=== PATIENT | male | born 1985 ===

== ENCOUNTER 2017-09-03 02:01 | Inpatient (IN) | payer MEDICAID, OTHER ==
--- NOTE | 2017-09-03 02:06 | C.PDOC ---
History Of Present Illness 32 year old male presents to the ED complaining of mid-epigastric pain onset today. Patient reports pain as a sharp, stabbing pain rating it a 6/10. Patient has a history of pancreatitis. Patient states he has not consumed alcohol for the past two years; denies any other physical complaints at this time. Time Seen by Provider: 09/03/17 02:06 History Per: Patient History/Exam Limitations: no limitations Onset/Duration Of Symptoms: Hrs Current Symptoms Are (Timing): Still Present Context: Other Severity: Severe Pain Scale Rating Of: 8 Location Of Pain/Discomfort: Epigastric (mid-epigastric pain ) Quality Of Discomfort: Sharp, Stabbing Associated Symptoms: Nausea. denies: Fever, Chills Exacerbating Factors: None Alleviating Factors: None Last Bowel Movement: Yesterday Recent travel outside of the [place]: No Additional History Per: Family Past Medical History Reviewed: Historical Data, Nursing Documentation, Vital Signs Vital Signs: Last Vital Signs Temp 97.8 F 09/03/17 02:11 Pulse 95 H 09/03/17 02:11 Resp 18 09/03/17 02:11 BP 148/77 09/03/17 02:11 Pulse Ox 100 09/03/17 02:11 Surgical History: No Surg Hx Family History: States: Unknown Family Hx Review Of Systems Constitutional: Negative for: Fever, Chills Eyes: Negative for: Vision Change Cardiovascular: Negative for: Chest Pain Respiratory: Negative for: Cough, Shortness of Breath Gastrointestinal: Positive for: Abdominal Pain (mid-epigastric pain ). Negative for: Nausea, Vomiting, Diarrhea Genitourinary: Negative for: Dysuria Musculoskeletal: Negative for: Back Pain Skin: Negative for: Rash Neurological: Negative for: Weakness Psych: Negative for: Anxiety Physical Exam - Physical Exam Appears: Non-toxic, In Acute Distress Skin: Warm, Dry Head: Normacephalic Eye(s): bilateral: Normal Inspection Oral Mucosa: Moist Neck: Supple Chest: Symmetrical Cardiovascular: Rhythm Regular Respiratory: No Rales, No Rhonchi, No Wheezing Gastrointestinal/Abdominal: Soft, Tenderness (mid-epigastric tenderness), No Distention, No Guarding, No Rebound Back: Normal Inspection Extremity: Normal ROM Extremity: Bilateral: Atraumatic Pulses: Left Dorsalis Pedis: Normal, Right Dorsalis Pedis: Normal Neurological/Psych: Oriented x3 Gait: Steady ED Course And Treatment - Laboratory Results Result Diagrams: 09/03/17 02:30 09/03/17 02:30 Progress Note: Time: 0210. Plan: --CMP. --Lipase. --CBC with differentials. --PTT. --Prothrombin Time. --Pepcid 20 mg IVP. --Sodium Chloride IV 1000 mls/hr. --Toradol 30 mg IVP. --Zofran 4 mg IVP. --Urinalysis Disposition Discussed With Dr.: Braden Mcghee Comment: accepted the pt on his service and took over the care at 5:58AM Doctor Will See Patient In The: ED Counseled Patient/Family Regarding: Studies Performed, Diagnosis - Disposition Disposition: HOSPITALIZED Disposition Time: 02:06 Condition: FAIR - POA Present On Arrival: None - Clinical Impression Clinical Impression: Abdominal pain, Acute pancreatitis - Scribe Statement Scribe Attestation: Documented by Kishor Rios, acting as a scribe for Dr. Amira Hanna. Provider Scribe Attestation: All medical record entries made by the Scribe were at my direction and personally dictated by me. I have reviewed the chart and agree that the record accurately reflects my personal performance of the history, physical exam, medical decision making, and the department course for this patient. I have also personally directed, reviewed, and agree with the discharge instructions and disposition. Decision To Admit - Pt Status Changed To: Hospital Disposition Of: Inpatient - Admit Certification Admit to Inpatient:: After my assessment, the patient will require hospitalization for at least two midnights. This is because of the severity of symptoms shown, intensity of services needed, and/or the medical risk in this patient being treated as an outpatient. - InPatient: Physician Admission Certification:: After my assessment, the patient will require hospitalization for at least two midnights. This is because of the severity of symptoms shown, intensity of services needed, and/or the medical risk in this patient being treated as an outpatient. - . Bed Request Type: Regular Admitting Physician: Braden Mcghee Patient Diagnosis: Abdominal pain, Acute pancreatitis
[2017-09-03 02:10] VITALS: BMI 22.4
[2017-09-03] MEDS ORDERED: Sodium Chloride 0.9% 1,000 ML IV ONE ×2 (02:10→04:32)
[2017-09-03 02:56] LABS: ALB/GLOB RATIO 1.4 (1.0-2.1); ALBUMIN 4.7 g/dL (3.5-5.0); ALT/SGPT 66 U/L (21-72); AST/SGOT 31 U/L (17-59); BLOOD UREA NITROGEN 8 mg/dL (9-20); CALCIUM 8.8 mg/dl (8.6-10.4); GFR AFRICAN-AMERICAN > 60; GFR NON-AFRICAN AMERICAN > 60
[2017-09-03 03:06] LABS: BASO % 0.3 % (0.0-2.0); EOS # 0.2 K/uL (0.0-0.7); EOS % 1.9 % (0.0-4.0); HEMOGLOBIN 15.8 g/dL (12.0-18.0); LYMPH % 25.6 % (20.0-40.0); MEAN CELL VOLUME 83.8 fL (80.0-94.0); MEAN CORPUSCULAR HEMOGLOBIN 28.4 pg (27.0-31.0); MEAN PLATELET VOLUME 8.1 fL (7.2-11.7); MONO # 0.6 K/uL (0.0-0.8); NEUT # 7.8 K/uL (1.8-7.0); NEUT % 67.2 % (50.0-75.0); RBC 5.54 Mil/uL (4.40-5.90); RED CELL DISTRIBUTION WIDTH 14.8 % (11.5-14.5); WHITE BLOOD COUNT 11.6 K/uL (4.8-10.8)
[2017-09-03 03:19] LABS: PROTHROMBIN TIME 11.1 SECONDS (9.7-12.2)
[2017-09-03 04:28] LABS: LIPASE 57174 U/L (23-300)
[2017-09-03 04:28] LABS: URINE BILIRUBIN NEGATIVE (NEGATIVE); URINE BLOOD NEGATIVE (NEGATIVE); URINE CLARITY Clear (Clear); URINE COLOR Colorless (YELLOW); URINE GLUCOSE (UA) NORMAL (Normal); URINE LEUKOCYTE ESTERASE NEG Leu/uL (Negative); URINE PROTEIN NEGATIVE (NEGATIVE); URINE UROBILINOGEN NORMAL mg/dL (0.2-1.0)
[2017-09-03] MEDS ORDERED: Iohexol 350mg/ml 100 ML ONE (05:07)
--- NOTE | 2017-09-03 06:32 | CT ---
EXAM: CT Abdomen and Pelvis With Intravenous Contrast CLINICAL HISTORY: 32 years old, male; Pain; Abdominal pain and other: Lipase 96710; Prior surgery; Surgery type: Appendectomy; Additional info: Abd pain , lipase 62022 TECHNIQUE: Axial computed tomography images of the abdomen and pelvis with intravenous contrast. All CT scans at this facility use one or more dose reduction techniques, viz.: automated exposure control; ma/kV adjustment per patient size (including targeted exams where dose is matched to indication; i.e. head); or iterative reconstruction technique. 679 images are submitted. Axial images are submitted in lung and soft tissue windows. Coronal and sagittal reformatted images were created and reviewed. CONTRAST: 100 mL of [id number] administered intravenously. COMPARISON: No relevant prior studies available. FINDINGS: Lung bases: Bibasilar lingular trace patchy nonspecific infiltrates are present, consistent with atelectasis or pneumonia. ABDOMEN: Liver: Fatty liver. Gallbladder and bile ducts: Nonspecific gallbladder distention with mild prominence of gallbladder wall. Pancreas: Peripancreatic inflammatory change and fluid representing acute pancreatitis. No ductal dilation. Spleen: Unremarkable. No splenomegaly. Adrenals: There is fluid in the left supraadrenal space and bilateral anterior pararenal space Kidneys and ureters: Mild distention of bilateral extrarenal pelvis left more than right No hydronephrosis. Stomach and bowel: Nonspecific gastric thickening likely due to under distention. Correlation with clinical data is recommended if gastritis is suspected. Large amount of stool in the colon. Correlation with patient's clinical history of constipation is recommended. Diverticulosis.There are nonspecific fluid filled small bowel loops. These findings can represent ileus versus enteritis versus slow transit versus peristalsis. Appendix: Appendectomy. PELVIS: Bladder: Bladder distention. Correlation with patient's voiding status is recommended. Reproductive: Unremarkable. ABDOMEN and PELVIS: Intraperitoneal space: Small amount of free pelvic fluid. No free air. No significant fluid collection. Bones/joints: No acute fracture. No dislocation. Soft tissues: There is a fat-containing umbilical hernia. Vasculature: Unremarkable. No abdominal aortic aneurysm. Lymph nodes: Multiple subcentimeter mesenteric and ileocolic lymph nodes. Findings are nonspecific but may represent mesenteric adenitis. IMPRESSION: 1. Peripancreatic inflammatory change and fluid representing acute pancreatitis.
[2017-09-03 06:57] VITALS: RESP 20
[2017-09-03] MEDS ORDERED: Morphine 4 MG/ML VIAL ONE (09:25)
--- NOTE | 2017-09-03 09:40 | CP.PCM.HP ---
History of Present Illness - History of Present Illness History of Present Illness: CC: Left sided abdominal pain HPI: Patient is a 32 year old male with past medical history of acute pancreatitis (2016), who presents with left-sided abdominal pain that started at 1:30am with associated symptom of one time episode of vomiting. Patient reports this has a heavy pain that is localized to the left side of his abdomen without any radiation. Patient denies any episode of fever, chills, chest pain, SOB, palpitations, hematochezia, hematuria, dysuria. Patient denies any acute alcohol binging. PMHx: Acute pancreatitis (2016) PSHx: Appendectomy (2007) FHx: Father(56, multiple episodes of acute pancreatitis and DM) and Mother (51, healthy) Medications: Denies Allergies: NKDA Social Hx: Visiting his from [place]. Denies Hx of tobacco and illicit drug use. Social ETOH use, but has not had ETOH in 2 years after his first acute pancreatitis episode Advance directive: None. Patient reports that his , Jeanette is to make medical decision on his behalf. [phone] Present on Admission - Present on Admission Any Indicators Present on Admission: No Review of Systems - Constitutional Constitutional: absent: Chills, Fever, Headache, Weakness - EENT Eyes: absent: Blurred Vision, Change in Vision Ears: absent: Dizziness - Cardiovascular Cardiovascular: absent: Chest Pain, Chest Pain at Rest, Diaphoresis, Dyspnea, Lightheadedness, Radiating Pain - Respiratory Respiratory: absent: Cough, Dyspnea, Hemoptysis, Dyspnea on Exertion, Wheezing - Gastrointestinal Gastrointestinal: Abdominal Pain, Nausea, Vomiting. absent: Belching, Bloating , Cramping, Diarrhea, Hematochezia - Genitourinary Genitourinary: absent: Dysuria, Hematuria - Musculoskeletal Musculoskeletal: absent: Arthralgias, Back Pain - Integumentary Integumentary: absent: Unusual Bruising - Neurological Neurological: absent: Dizziness, Numbness, Focal Weakness, Syncope - Endocrine Endocrine: absent: Fatigue, Palpitations - Hematologic/Lymphatic Hematologic: absent: Easy Bleeding, Easy Bruising Past Patient History - Past Social History Smoking Status: Never Smoked - GASTROINTESTINAL Hx Pancreatitis: Yes - PSYCHIATRIC Hx Substance Use: No - SURGICAL HISTORY Hx Surgeries: Yes Hx Appendectomy: Yes - ANESTHESIA Hx Anesthesia: Yes Hx Anesthesia Reactions: No Meds Allergies/Adverse Reactions: Allergies Allergy/AdvReac Type Severity Reaction Status Date / Time No Known Allergies Allergy Verified 07/29/17 19:58 Physical Exam - Constitutional Appears: No Acute Distress - Head Exam Head Exam: ATRAUMATIC, NORMAL INSPECTION - Eye Exam Eye Exam: EOMI, Normal appearance, PERRL - ENT Exam ENT Exam: Mucous Membranes Moist - Respiratory Exam Respiratory Exam: Clear to Auscultation Bilateral, NORMAL BREATHING PATTERN. absent: Rhonchi, Wheezes, Respiratory Distress - Cardiovascular Exam Cardiovascular Exam: REGULAR RHYTHM, +S1, +S2. absent: Tachycardia, Diastolic murmur, Systolic Murmur - GI/Abdominal Exam GI & Abdominal Exam: Normal Bowel Sounds, Soft, Tenderness Additional comments: Left-sided abdominal tenderness Negative for tyler and Multani-Leong's sign - Extremities Exam Extremities exam: Positive for: normal inspection. Negative for: calf tenderness, pedal edema - Neurological Exam Neurological exam: Altered, CN II-XII Intact, Oriented x3 - Psychiatric Exam Psychiatric exam: Normal Affect, Normal Mood - Skin Skin Exam: Normal Color, Warm Results - Vital Signs Recent Vital Signs: Last Vital Signs Temp 97.7 F 09/03/17 07:55 Pulse 86 09/03/17 07:55 Resp 20 09/03/17 07:55 BP 122/81 09/03/17 07:55 Pulse Ox 99 09/03/17 07:55 - Labs Result Diagrams: 09/03/17 02:30 09/03/17 02:30 Labs: Laboratory Results - last 24 hr 09/03/17 09/03/17 09/03/17 02:30 02:30 03:05 WBC 11.6 H RBC 5.54 Hgb 15.8 Hct 46.4 MCV 83.8 MCH 28.4 MCHC 34.0 RDW 14.8 H Plt Count 279 MPV 8.1 Neut % (Auto) 67.2 Lymph % (Auto) 25.6 [place] % (Auto) 5.0 Eos % (Auto) 1.9 Baso % (Auto) 0.3 Neut # (Auto) 7.8 H Lymph # (Auto) 3.0 [place] # (Auto) 0.6 Eos # (Auto) 0.2 Baso # (Auto) 0.0 PT 11.1 INR 1.0 APTT 29 Sodium 142 Potassium 3.5 L Chloride 100 Carbon Dioxide 24 Anion Gap 21 H BUN 8 L Creatinine 0.6 L Est GFR ( Amer) > 60 Est GFR (Non-Af Amer) > 60 Random Glucose 114 H Calcium 8.8 Total Bilirubin 0.7 AST 31 ALT 66 Alkaline Phosphatase 70 Total Protein 8.0 Albumin 4.7 Globulin 3.3 Albumin/Globulin Ratio 1.4 Lipase 89241 H Urine Color Urine Clarity Urine pH Ur Specific [place] Urine Protein Urine Glucose (UA) Urine Ketones Urine Blood Urine Nitrate Urine Bilirubin Urine Urobilinogen Ur Leukocyte Esterase Urine WBC (Auto) Urine RBC (Auto) 09/03/17 04:22 WBC RBC Hgb Hct MCV MCH MCHC RDW Plt Count MPV Neut % (Auto) Lymph % (Auto) [place] % (Auto) Eos % (Auto) Baso % (Auto) Neut # (Auto) Lymph # (Auto) [place] # (Auto) Eos # (Auto) Baso # (Auto) PT INR APTT Sodium Potassium Chloride Carbon Dioxide Anion Gap BUN Creatinine Est GFR ( Amer) Est GFR (Non-Af Amer) Random Glucose Calcium Total Bilirubin AST ALT Alkaline Phosphatase Total Protein Albumin Globulin Albumin/Globulin Ratio Lipase Urine Color Colorless Urine Clarity Clear Urine pH 7.0 Ur Specific [place] 1.005 Urine Protein Negative Urine Glucose (UA) Normal Urine Ketones Negative Urine Blood Negative Urine Nitrate Negative Urine Bilirubin Negative Urine Urobilinogen Normal Ur Leukocyte Esterase Neg Urine WBC (Auto) 1 Urine RBC (Auto) < 1 Assessment & Plan (1) Acute pancreatitis Assessment and Plan: Consultation: GI: Dr. Albright---> Help appreciated * Management as per recommendation Diagnostic imaging/labs: * Lipase: 57,174, monitor on repeat in the am * WBC: 11.6 * LDH: 362 * Lipid panel: TGL: 263, Cholesterol: 237, LDL:171 and HDL:31 * [place] Criteria on admission: 1 * CT abdomen/Pelvis: Peripancreatic inflammatory change and fluid representing acute pancreatitis Management and medication: * NPO * LR @ 250mls/hr * Toradol 15mg and 30mg IV Q6H PRN ( Moderate and Severe pain, respectively) * Zofran 4mg IV Q6H PRN for nausea Status: Acute (2) Hypokalemia Assessment and Plan: K+: 3.5 * Repleted appropriately ( KCl 30meq IV once) * Monitor with am labs Status: Acute (3) Leukocytosis Assessment and Plan: Secondary to acute pancreatitis WBC: 11.6 LR@ 250mls/hr Monitor with am labs Status: Acute (4) Prophylactic measure Assessment and Plan: SCDs,: Score is 1, SCDs, ambulating GI: Protonix 40mg IV daily All plans and management discussed with Dr. Natalee Lucas Status: Acute
[2017-09-03] MEDS: Sodium Chloride 0.9% 1,000 ML IV SCH ×3 (11:48→16:24)
[2017-09-03 12:15] LABS: HDL CHOLESTEROL 31 mg/dL (30-70)
[2017-09-03 12:27] LABS: LDL CHOLESTEROL 179 mg/dL (0-129)
--- NOTE | 2017-09-03 13:38 | CP.PCM.CON ---
History of Present Illness - History of Present Illness History of Present Illness: ASked today to see pt for abdom pain. 32 yo male h/o alcohol abuse, alcoholic pancreatitis. FAther in law present. Started having severe epig pain last night- sharp, severe, constant.. [place] like past episodes of pancreatitis. PMH: pancreatitis due to ETOH- in [place].. Denies meds, vitamins, herbals, drugs , cocaine, Review of Systems - Constitutional Constitutional: absent: Anorexia, Chills, Fatigue, Fever, Weight Gain, Weight Loss, Weakness - EENT Eyes: absent: Photophobia - Cardiovascular Cardiovascular: absent: Chest Pain, Dyspnea, Paroxysmal Nocturnal Dyspnea - Respiratory Respiratory: absent: Cough, Dyspnea, Hemoptysis, Wheezing - Gastrointestinal Gastrointestinal: Abdominal Pain, Nausea. absent: Bloating, Coffee Ground Emesis, Constipation, Diarrhea, Dysphagia, Hematemesis, Hematochezia, Loose Stools, Melena - Genitourinary Genitourinary: absent: Hematuria - Musculoskeletal Musculoskeletal: absent: Muscle Cramps, Myalgias - Integumentary Integumentary: absent: Erythema, Jaundice Past Patient History - Past Social History Smoking Status: Never Smoked - CARDIAC Hx Cardiac Disorders: No - INTEGUMENTARY Hx Dermatological Problems: No - MUSCULOSKELETAL/RHEUMATOLOGICAL Hx Musculoskeletal Disorders: No - GASTROINTESTINAL Hx Pancreatitis: Yes - GENITOURINARY/GYNECOLOGICAL Hx Genitourinary Disorders: No - PSYCHIATRIC Hx Substance Use: No - SURGICAL HISTORY Hx Surgeries: Yes Hx Appendectomy: Yes - ANESTHESIA Hx Anesthesia: Yes Hx Anesthesia Reactions: No Meds Allergies/Adverse Reactions: Allergies Allergy/AdvReac Type Severity Reaction Status Date / Time No Known Allergies Allergy Verified 07/29/17 19:58 - Medications Medications: Current Medications Sodium Chloride (Sodium Chloride 0.9%) 1,000 mls @ 250 mls/hr IV .Q4H [facility] Last Admin: 09/03/17 11:48 Dose: 250 mls/hr Ketorolac Tromethamine (Toradol) 15 mg IVP Q6 PRN PRN Reason: Pain, moderate (4-7) Ketorolac Tromethamine (Toradol) 30 mg IVP Q6 PRN PRN Reason: Pain, severe (8-10) Ondansetron HCl (Zofran Inj) 4 mg IVP Q6 PRN PRN Reason: Nausea/Vomiting Pantoprazole Sodium (Protonix Inj) 40 mg IVP DAILY [facility] Last Admin: 09/03/17 13:03 Dose: 40 mg Physical Exam - Constitutional Appears: Well - Respiratory Exam Respiratory Exam: Clear to Auscultation Bilateral - Cardiovascular Exam Cardiovascular Exam: RRR - GI/Abdominal Exam GI & Abdominal Exam: Normal Bowel Sounds, Soft, Tenderness. absent: Distended, Guarding, Mass, Rebound, Rigid Additional comments: mild epig tenderness - Rectal Exam Rectal Exam: Deferred - Extremities Exam Extremities exam: Negative for: calf tenderness, pedal edema - Neurological Exam Neurological exam: Alert, Oriented x3 Results - Vital Signs Recent Vital Signs: Last Vital Signs Temp 97.7 F 09/03/17 07:55 Pulse 86 09/03/17 07:55 Resp 20 09/03/17 07:55 BP 122/81 09/03/17 07:55 Pulse Ox 99 09/03/17 07:55 - Labs Result Diagrams: 09/03/17 02:30 09/03/17 02:30 Labs: Laboratory Results - last 24 hr 09/03/17 09/03/17 09/03/17 02:30 02:30 03:05 WBC 11.6 H RBC 5.54 Hgb 15.8 Hct 46.4 MCV 83.8 MCH 28.4 MCHC 34.0 RDW 14.8 H Plt Count 279 MPV 8.1 Neut % (Auto) 67.2 Lymph % (Auto) 25.6 [place] % (Auto) 5.0 Eos % (Auto) 1.9 Baso % (Auto) 0.3 Neut # (Auto) 7.8 H Lymph # (Auto) 3.0 [place] # (Auto) 0.6 Eos # (Auto) 0.2 Baso # (Auto) 0.0 PT 11.1 INR 1.0 APTT 29 Sodium 142 Potassium 3.5 L Chloride 100 Carbon Dioxide 24 Anion Gap 21 H BUN 8 L Creatinine 0.6 L Est GFR ( Amer) > 60 Est GFR (Non-Af Amer) > 60 Random Glucose 114 H Hemoglobin A1c Calcium 8.8 Total Bilirubin 0.7 AST 31 ALT 66 Alkaline Phosphatase 70 Lactate Dehydrogenase Total Protein 8.0 Albumin 4.7 Globulin 3.3 Albumin/Globulin Ratio 1.4 Triglycerides Cholesterol LDL Cholesterol Direct HDL Cholesterol Lipase 42724 H Urine Color Urine Clarity Urine pH Ur Specific [place] Urine Protein Urine Glucose (UA) Urine Ketones Urine Blood Urine Nitrate Urine Bilirubin Urine Urobilinogen Ur Leukocyte Esterase Urine WBC (Auto) Urine RBC (Auto) Alcohol, Quantitative 09/03/17 09/03/17 09/03/17 04:22 11:41 11:41 WBC RBC Hgb Hct MCV MCH MCHC RDW Plt Count MPV Neut % (Auto) Lymph % (Auto) [place] % (Auto) Eos % (Auto) Baso % (Auto) Neut # (Auto) Lymph # (Auto) [place] # (Auto) Eos # (Auto) Baso # (Auto) PT INR APTT Sodium Potassium Chloride Carbon Dioxide Anion Gap BUN Creatinine Est GFR ( Amer) Est GFR (Non-Af Amer) Random Glucose Hemoglobin A1c 5.4 Calcium Total Bilirubin AST ALT Alkaline Phosphatase Lactate Dehydrogenase Total Protein Albumin Globulin Albumin/Globulin Ratio Triglycerides 263 H Cholesterol 237 H LDL Cholesterol Direct 179 H HDL Cholesterol 31 Lipase Urine Color Colorless Urine Clarity Clear Urine pH 7.0 Ur Specific [place] 1.005 Urine Protein Negative Urine Glucose (UA) Normal Urine Ketones Negative Urine Blood Negative Urine Nitrate Negative Urine Bilirubin Negative Urine Urobilinogen Normal Ur Leukocyte Esterase Neg Urine WBC (Auto) 1 Urine RBC (Auto) < 1 Alcohol, Quantitative < 10 09/03/17 11:41 WBC RBC Hgb Hct MCV MCH MCHC RDW Plt Count MPV Neut % (Auto) Lymph % (Auto) [place] % (Auto) Eos % (Auto) Baso % (Auto) Neut # (Auto) Lymph # (Auto) [place] # (Auto) Eos # (Auto) Baso # (Auto) PT INR APTT Sodium Potassium Chloride Carbon Dioxide Anion Gap BUN Creatinine Est GFR ( Amer) Est GFR (Non-Af Amer) Random Glucose Hemoglobin A1c Calcium Total Bilirubin AST ALT Alkaline Phosphatase Lactate Dehydrogenase 362 Total Protein Albumin Globulin Albumin/Globulin Ratio Triglycerides Cholesterol LDL Cholesterol Direct HDL Cholesterol Lipase Urine Color Urine Clarity Urine pH Ur Specific [place] Urine Protein Urine Glucose (UA) Urine Ketones Urine Blood Urine Nitrate Urine Bilirubin Urine Urobilinogen Ur Leukocyte Esterase Urine WBC (Auto) Urine RBC (Auto) Alcohol, Quantitative Assessment & Plan (1) Hypokalemia Assessment and Plan: replace Status: Acute (2) Abdominal pain Assessment and Plan: pancreatitis Status: Acute (3) Acute pancreatitis Assessment and Plan: but denies etoh ofr 2 years. Consider acute on chronic pancreatitis. LFTs- ok. REC: Vigorous IV hydration- LR NPO analgesics. F/u labs- lipase, CMP Checl CHELSEA, lipid profile. Status: Acute
[2017-09-03] MEDS: Lactated Ringer's 1,000 ML IV SCH ×2 (16:23→20:58)
[2017-09-04] MEDS: Lactated Ringer's 1,000 ML IV SCH ×7 (01:00→23:00)
[2017-09-04 08:59] LABS: BASO % 0.2 % (0.0-2.0); EOS # 0.2 K/uL (0.0-0.7); EOS % 3.1 % (0.0-4.0); HEMOGLOBIN 14.3 g/dL (12.0-18.0); LYMPH # 1.7 K/uL (1.0-4.3); LYMPH % 26.3 % (20.0-40.0); MEAN CELL VOLUME 82.4 fL (80.0-94.0); MEAN CORPUSCULAR HEMOGLOBIN 28.9 pg (27.0-31.0); MEAN PLATELET VOLUME 8.1 fL (7.2-11.7); MONO # 0.4 K/uL (0.0-0.8); MONO % 5.9 % (0.0-10.0); NEUT # 4.3 K/uL (1.8-7.0); NEUT % 64.5 % (50.0-75.0); RBC 4.94 Mil/uL (4.40-5.90); RED CELL DISTRIBUTION WIDTH 14.8 % (11.5-14.5); WHITE BLOOD COUNT 6.6 K/uL (4.8-10.8)
--- NOTE | 2017-09-04 09:20 | CP.PCM.PN ---
Subjective - Date & Time of Evaluation Date of Evaluation: 09/04/17 Time of Evaluation: 09:00 - Subjective Subjective: F/U pancreatitis present Has epig pain- sl less. Reports more gas and bloating. Denies CP, SOB, fever, chills, YEN, RB, melena Objective - Vital Signs/Intake and Output Vital Signs (last 24 hours): Temp Pulse Resp BP Pulse Ox 98.2 F 76 20 132/92 H 96 09/04/17 08:00 09/04/17 08:00 09/04/17 08:00 09/04/17 08:00 09/04/17 08:00 Intake and Output: 09/04/17 09/04/17 06:59 18:59 Intake Total 1750 Balance 1750 - Medications Medications: Current Medications Lactated Ringer's (Lactated Ringer's) 1,000 mls @ 250 mls/hr IV .Q4H [facility] Last Admin: 09/04/17 05:10 Dose: 250 mls/hr Ketorolac Tromethamine (Toradol) 15 mg IVP Q6 PRN PRN Reason: Pain, moderate (4-7) Last Admin: 09/03/17 18:47 Dose: 15 mg Ketorolac Tromethamine (Toradol) 30 mg IVP Q6 PRN PRN Reason: Pain, severe (8-10) Last Admin: 09/04/17 05:08 Dose: 30 mg Ondansetron HCl (Zofran Inj) 4 mg IVP Q6 PRN PRN Reason: Nausea/Vomiting Pantoprazole Sodium (Protonix Inj) 40 mg IVP DAILY [facility] Last Admin: 09/03/17 13:03 Dose: 40 mg - Labs Labs: 09/04/17 08:48 09/03/17 02:30 PT 11.1 SECONDS (9.7-12.2) 09/03/17 03:05 INR 1.0 09/03/17 03:05 APTT 29 SECONDS (21-34) 09/03/17 03:05 - Constitutional Appears: Well - Respiratory Exam Respiratory Exam: Clear to Ausculation Bilateral - Cardiovascular Exam Cardiovascular Exam: RRR - GI/Abdominal Exam GI & Abdominal Exam: Soft, Tenderness, Normal Bowel Sounds. absent: Guarding, Rigid, Mass, Rebound Additional comments: mild epig tenderness - Neurological Exam Neurological Exam: Alert, Oriented x3 Assessment and Plan (1) Hypokalemia Status: Acute (2) Abdominal pain Assessment & Plan: pancreatitis Status: Acute (3) Acute pancreatitis Assessment & Plan: Reports ETOh 2 yrs ago. Has h/o etoh pancreatitis in the past. NM=190. No cyst on CT. REC: IV fluids LR >250/hr. Follow labs- CBC, CMP, lipase,. Check CHELSEA. DIet- advance when able. Discussed risks with patient and - including pulm, renal, pain. Discussed 09/03 with [employer]IE[employer]. Status: Acute
[2017-09-04 09:21] LABS: ALB/GLOB RATIO 1.3 (1.0-2.1); ALT/SGPT 37 U/L (21-72); AST/SGOT 20 U/L (17-59); BLOOD UREA NITROGEN 4 mg/dL (9-20); CALCIUM 9.1 mg/dl (8.6-10.4); GFR AFRICAN-AMERICAN > 60; GFR NON-AFRICAN AMERICAN > 60
--- NOTE | 2017-09-04 09:45 | CP.PCM.PN ---
Subjective - Date & Time of Evaluation Date of Evaluation: 09/04/17 Time of Evaluation: 09:30 - Subjective Subjective: Hospitalist Progress Note Patient was seen and examined at 9:30 AM 09/04/17 Bed 361 B with present Very pleasant 32 year old male who was admitted on morning of 09/03/17 with Acute Pancreatitis. The patient was made NPO, placed on aggresive hydration, and anti-inflammatory was started for pain control. This is his second attack of pancreatitis, the first was in 2016 at which time he was drinking alcohol. After the first episode, patient has not drank any alcohol. However, he does reveal that his father has a history of multiple attacks of pancreatitis. Therefore workup for autoimmune pancreatitis was initiated. Please see Assessment and Plan below for further details. Upon FULL ROS (+) Abdominal Pain located in the LUQ and LLQ that is described as a pressure like pain that occurred last night for which he requested pain medication. However at the time of exam today, there is NO pain NO dysphagia/odynopahgia NO soreness in throat NO cough/SOB/Wheezing NO sinus/nasal congestion NO fever/chills NO muscle aches/pains NO joint pain NO chest pain/palpations NO n/v/d/c: has not moved his bowels since admission NO burning pain with urination NO YEN NO lightheadedness/dizziness NO paresthesias NO new changes vision/eye pain/loss of vision NO new changes in hearing/ear pain/tinnitus Exam: General: AAOX3, NAD HEENT: NCA, EOMI, PERRLA, NO cervical/supraclavicular/submandibular lymphadenopathy, NO pharyngeal erythema/exudate, Nasal Turbinates are nonerythematous/nonedematous, Oral Mucosa is moist Cardio: NS1 and NS2, NO M/R/G Resp: CTA B/L, NO R/R/W GI: BSx4, Soft, ND, NO HSM, NO guarding/rebound tenderness, (+) LUQ and LLQ increased pressure sensation upon palpation Ext: Pulses are strong and equal, Capillary Refill is 2 seconds, NO edema Neuro: CN II through XII are grossly intact Assessment & Plan (1) Acute pancreatitis Assessment and Plan: Consultation: GI: Dr. Albright---> Help appreciated * Management as per recommendation Diagnostic imaging/labs: * Lipase: 57,174, with repeat level pending this morning 09/04/17 * WBC: leukocytosis has resolved * LDH: 362 * Lipid panel: TGL: 263, Cholesterol: 237, LDL:171 and HDL:31 will start low dose statin Crestor 5 mg PO HS * [place] Criteria on admission: 1 * CT abdomen/Pelvis: Peripancreatic inflammatory change and fluid representing acute pancreatitis Management and medication: * NPO * LR @ 150 ml/hour * Toradol 15mg and 30mg IV Q6H PRN ( Moderate and Severe pain, respectively) * Zofran 4mg IV Q6H PRN for nausea Autoimmune work-up for pancreatitis: * CHELSEA, P-ANCA, IgG4, Anti PBP peptide Ab, Lactoferrin, Anti-mitochondrial Ab, RF , Anti-Smooth Ab, and Anti-thyroglobulin Ab were ordered * Unable to conduct Carbonic Anhydrase II Ab due to limitation with [facility] lab diagnostics Status: Acute (2) Hypokalemia Assessment and Plan: Repleted 09/03/17 Status: Resolved (3) Leukocytosis Assessment and Plan: Secondary to acute pancreatitis WBC: resolved LR Monitor with am labs Status: Resolved (4) Prophylactic measure Assessment and Plan: SCDs,: Score is 1, SCDs, ambulating GI: Protonix 40mg IV daily due to the use of Toradol for pain control Spoke with both patient and and explained the above. Also informed them that the autoimmune workup may take a few days to come back and should it not be available at the time of discharge, that Medicine Team will provide the a list of the necessary tests so that when they go back to [facility] later this coming week, patient can provide this list to his physician there so that it can be done. Patient will let Nurse Belen know later today concerning if his pain level is better to the point where he would like to start a clear liquid diet. David Lucas D.O. Objective - Vital Signs/Intake and Output Vital Signs (last 24 hours): Temp Pulse Resp BP Pulse Ox 98.2 F 76 20 132/92 H 96 09/04/17 08:00 09/04/17 08:00 09/04/17 08:00 09/04/17 08:00 09/04/17 08:00 Intake and Output: 09/04/17 09/04/17 06:59 18:59 Intake Total 1750 Balance 1750 - Medications Medications: Current Medications Lactated Ringer's (Lactated Ringer's) 1,000 mls @ 250 mls/hr IV .Q4H [facility] Last Admin: 09/04/17 09:30 Dose: 250 mls/hr Ketorolac Tromethamine (Toradol) 15 mg IVP Q6 PRN PRN Reason: Pain, moderate (4-7) Last Admin: 09/03/17 18:47 Dose: 15 mg Ketorolac Tromethamine (Toradol) 30 mg IVP Q6 PRN PRN Reason: Pain, severe (8-10) Last Admin: 09/04/17 05:08 Dose: 30 mg Ondansetron HCl (Zofran Inj) 4 mg IVP Q6 PRN PRN Reason: Nausea/Vomiting Pantoprazole Sodium (Protonix Inj) 40 mg IVP DAILY [facility] Last Admin: 09/04/17 09:30 Dose: 40 mg - Labs Labs: 09/04/17 08:48 09/04/17 08:48 PT 11.1 SECONDS (9.7-12.2) 09/03/17 03:05 INR 1.0 09/03/17 03:05 APTT 29 SECONDS (21-34) 09/03/17 03:05
[2017-09-04 09:59] LABS: LIPASE 7415 U/L (23-300)
--- NOTE | 2017-09-05 00:51 | CP.PCM.PN ---
<Akiko Palmer - Last Filed: 09/05/17 06:46> Subjective - Date & Time of Evaluation Date of Evaluation: 09/05/17 Time of Evaluation: 06:47 - Subjective Subjective: Progress note for Dr. Lucas Patient seen and examined at bedside. No acute events overnight. Patient tolerating clear liquid diet. Patient denies mid-epigastric pain. Patient denies asking for pain medication. Patient states he would be okay with advancing diet today as tolerated. Patient denies diarrhea, constipation, chest pain, shortness of breath, fever, chills, nausea, vomiting Objective - Vital Signs/Intake and Output Vital Signs (last 24 hours): Temp Pulse Resp BP Pulse Ox 98 F 88 20 130/83 99 09/04/17 23:16 09/04/17 23:16 09/04/17 23:16 09/04/17 23:16 09/04/17 23:16 Intake and Output: 09/04/17 09/05/17 18:59 06:59 Intake Total 1860 Balance 1860 - Medications Medications: Current Medications Lactated Ringer's (Lactated Ringer's) 1,000 mls @ 150 mls/hr IV .Q6H40M [facility] Last Admin: 09/04/17 23:00 Dose: Not Given Ketorolac Tromethamine (Toradol) 15 mg IVP Q6 PRN PRN Reason: Pain, moderate (4-7) Last Admin: 09/03/17 18:47 Dose: 15 mg Ketorolac Tromethamine (Toradol) 30 mg IVP Q6 PRN PRN Reason: Pain, severe (8-10) Last Admin: 09/04/17 05:08 Dose: 30 mg Ondansetron HCl (Zofran Inj) 4 mg IVP Q6 PRN PRN Reason: Nausea/Vomiting Pantoprazole Sodium (Protonix Inj) 40 mg IVP DAILY [facility] Last Admin: 09/04/17 09:30 Dose: 40 mg Rosuvastatin Calcium (Crestor) 5 mg PO HS [facility] Last Admin: 09/04/17 21:37 Dose: 5 mg - Labs Labs: 09/04/17 08:48 09/04/17 08:48 PT 11.1 SECONDS (9.7-12.2) 09/03/17 03:05 INR 1.0 09/03/17 03:05 APTT 29 SECONDS (21-34) 09/03/17 03:05 - Additional Findings Additional findings: - Constitutional Appears: No Acute Distress - Head Exam Head Exam: ATRAUMATIC, NORMAL INSPECTION - Eye Exam Eye Exam: EOMI, Normal appearance, PERRL - ENT Exam ENT Exam: Mucous Membranes Moist - Respiratory Exam Respiratory Exam: Clear to Auscultation Bilateral, NORMAL BREATHING PATTERN. absent: Rhonchi, Wheezes, Respiratory Distress - Cardiovascular Exam Cardiovascular Exam: REGULAR RHYTHM, +S1, +S2. absent: Tachycardia, Diastolic murmur, Systolic Murmur - GI/Abdominal Exam GI & Abdominal Exam: Normal Bowel Sounds, Soft. absent: rebound, rigidity, guarding, Tenderness Additional comments: Negative for [place] and Multani-Leong's sign - Extremities Exam Extremities exam: Positive for: normal inspection. Negative for: calf tenderness, pedal edema - Neurological Exam Neurological exam: Altered, CN II-XII Intact, Oriented x3 - Psychiatric Exam Psychiatric exam: Normal Affect, Normal Mood - Skin Skin Exam: Normal Color, Warm Assessment and Plan - Assessment and Plan (Free Text) Assessment: (1) Acute pancreatitis Assessment and Plan: Consultation: GI Consult: Dr. Albright Diagnostic imaging/labs: * Lipase: 57,174 on admission, downtrending * Lipid panel: TGL: 263, Cholesterol: 237, LDL:171 and HDL:31 * [place] Criteria on admission: 1 * Antimitochondrial ab negative * Pending other autoimmune workup * f/u ANCA screen C-ANCA, P-ANCA, atypical p-ANCA titer, smooth muscle ab titer , anti-smooth much ab, and thyroblobulin ab * IgG4, Anti PBP peptide Ab, Lactoferrin, RF * Unable to conduct Carbonic Anhydrase II Ab due to limitation with [employer] lab diagnostics * CT abdomen/Pelvis: Cleo-pancreatic inflammatory change and fluid indicating acute pancreatitis Management and medication: * diet: clear liquid diet, advance as tolerated * LR @ 150mls/hr * Toradol 15mg and 30mg IV Q6H PRN ( Moderate and Severe pain, respectively) * Zofran 4mg IV Q6H PRN for nausea Status: Acute A: Family history of pancreatitis P: Autoimmune work-up for pancreatitis: CHELSEA, P-ANCA, IgG4, Anti PBP peptide Ab, Lactoferrin, Anti-mitochondrial Ab, RF, Anti-Smooth Ab, and Anti-thyroglobulin Ab Unable to conduct Carbonic Anhydrase II Ab due to limitation with [employer] lab diagnostics resulting labs: (2) Hypokalemia, resolved * Replete appropriately * Monitor with am labs Status: Acute (3) Leukocytosis Assessment and Plan: Secondary to acute pancreatitis LR@ 150mls/hr Monitor with am labs Status: Acute (4) Prophylactic measure Assessment and Plan: SCDs,: Score is 1, ambulating GI: Protonix 40mg IV daily Dr. David Palmer, DO PGY1 <David Lucas J - Last Filed: 09/05/17 14:40> Objective - Vital Signs/Intake and Output Vital Signs (last 24 hours): Temp Pulse Resp BP Pulse Ox 98.0 F 82 20 127/83 99 09/05/17 08:11 09/05/17 08:11 09/05/17 08:11 09/05/17 08:11 09/05/17 08:11 Intake and Output: 09/05/17 09/05/17 06:59 18:59 Intake Total 1200 Balance 1200 - Medications Medications: Current Medications Lactated Ringer's (Lactated Ringer's) 1,000 mls @ 150 mls/hr IV .Q6H40M [facility] Last Admin: 09/05/17 13:09 Dose: 150 mls/hr Ondansetron HCl (Zofran Inj) 4 mg IVP Q6 PRN PRN Reason: Nausea/Vomiting Pantoprazole Sodium (Protonix Inj) 40 mg IVP DAILY [facility] Last Admin: 09/05/17 09:11 Dose: 40 mg Rosuvastatin Calcium (Crestor) 5 mg PO HS [facility] Last Admin: 09/04/17 21:37 Dose: 5 mg - Labs Labs: 09/05/17 07:42 09/05/17 07:42 PT 11.1 SECONDS (9.7-12.2) 09/03/17 03:05 INR 1.0 09/03/17 03:05 APTT 29 SECONDS (21-34) 09/03/17 03:05 Attending/Attestation - Attestation I have personally seen and examined this patient.: Yes I have fully participated in the care of the patient.: Yes I have reviewed all pertinent clinical information, including history, physical exam and plan: Yes Notes (Text): 09/05/17 14:34 Hospitalist Progress Note Patient was seen and examined at 2:30 PM 09/05/17 Bed 361 B Very pleasant 32 year old male who was admitted on morning of 09/03/17 with Acute Pancreatitis. The patient was made NPO, placed on aggresive hydration, and anti-inflammatory was started for pain control. This is his second attack of pancreatitis, the first was in 2016 at which time he was drinking alcohol. After the first episode, patient has not drank any alcohol. However, he does reveal that his father has a history of multiple attacks of pancreatitis. Therefore workup for autoimmune pancreatitis was initiated. Please see Assessment and Plan below for further details. Upon FULL ROS Abdominal Pain only now occasionally in the LUQ NO dysphagia/odynopahgia NO soreness in throat NO cough/SOB/Wheezing NO sinus/nasal congestion NO fever/chills NO muscle aches/pains NO joint pain NO chest pain/palpations NO n/v/d/c: moved his bowels normally today NO burning pain with urination NO YEN NO lightheadedness/dizziness NO paresthesias NO new changes vision/eye pain/loss of vision NO new changes in hearing/ear pain/tinnitus Exam: General: AAOX3, NAD HEENT: NCA, EOMI, PERRLA, NO cervical/supraclavicular/submandibular lymphadenopathy, NO pharyngeal erythema/exudate, Nasal Turbinates are nonerythematous/nonedematous, Oral Mucosa is moist Cardio: NS1 and NS2, NO M/R/G Resp: CTA B/L, NO R/R/W GI: BSx4, Soft, ND, NO HSM, NO guarding/rebound tenderness, (+) LUQ and LLQ increased pressure sensation upon palpation Ext: Pulses are strong and equal, Capillary Refill is 2 seconds, NO edema Neuro: CN II through XII are grossly intact Assessment & Plan (1) Acute pancreatitis Assessment and Plan: Consultation: GI: Dr. Albright---> Help appreciated * Management as per recommendation Diagnostic imaging/labs: * Lipase: 57,174, with repeat level pending this morning 09/04/17 * WBC: leukocytosis has resolved * LDH: 362 * Lipid panel: TGL: 263, Cholesterol: 237, LDL:171 and HDL:31 will start low dose statin Crestor 5 mg PO HS * [place] Criteria on admission: 1 * CT abdomen/Pelvis: Peripancreatic inflammatory change and fluid representing acute pancreatitis Management and medication: * NPO * LR @ 100 ml/hr * Toradol 15mg and 30mg IV Q6H PRN ( Moderate and Severe pain, respectively) * Zofran 4mg IV Q6H PRN for nausea Autoimmune work-up for pancreatitis: * CHELSEA, P-ANCA, IgG4, Anti PBP peptide Ab, Lactoferrin, Anti-mitochondrial Ab, RF , Anti-Smooth Ab, and Anti-thyroglobulin Ab were ordered * Unable to conduct Carbonic Anhydrase II Ab due to limitation with [facility] lab diagnostics Status: Acute (2) Hypokalemia Assessment and Plan: Repleted 09/03/17 Status: Resolved (3) Leukocytosis Assessment and Plan: Secondary to acute pancreatitis WBC: resolved LR Monitor with am labs Status: Resolved (4) Prophylactic measure Assessment and Plan: SCDs,: Score is 1, SCDs, ambulating GI: Protonix 40mg IV daily due to the use of Toradol for pain control 09/04/17: Spoke with both patient and and explained the above. Also informed them that the autoimmune workup may take a few days to come back and should it not be available at the time of discharge, that Medicine Team will provide the a list of the necessary tests so that when they go back to [facility] later this coming week, patient can provide this list to his physician there so that it can be done. 09/05/17: As long as the patient tolerates regular diet with breakfast on morning 09/06/17, patient may be discharged. Medicine Team please make sure that upon discharge patient is provided with a list of the autoimmune tests that will need to be performed by his physician in [facility]. These are the following: CHELSEA, P-ANCA, IgG Subclass 4, Anti PBP peptide Ab, Lactoferrin, Anti- mitochondrial Ab, RF, Anti-Smooth Ab, Carbonic Anhydrase II Ab, and Anti- thyroglobulin Ab. The patient should also be provided with CD Copy of his CT Abdomen/Pelvis as well as report of findings. David Lucas D.O.
[2017-09-05] MEDS: Lactated Ringer's 1,000 ML IV SCH ×4 (00:57→18:31)
[2017-09-05 07:53] LABS: BASO % 0.4 % (0.0-2.0); EOS # 0.2 K/uL (0.0-0.7); EOS % 4.3 % (0.0-4.0); HEMOGLOBIN 14.1 g/dL (12.0-18.0); LYMPH # 1.7 K/uL (1.0-4.3); LYMPH % 30.3 % (20.0-40.0); MEAN CELL VOLUME 81.7 fL (80.0-94.0); MEAN CORPUSCULAR HEMOGLOBIN 28.6 pg (27.0-31.0); MEAN CORPUSCULAR HGB CONC 35.1 g/dL (33.0-37.0); MEAN PLATELET VOLUME 7.8 fL (7.2-11.7); MONO # 0.3 K/uL (0.0-0.8); MONO % 6.2 % (0.0-10.0); NEUT # 3.3 K/uL (1.8-7.0); NEUT % 58.8 % (50.0-75.0); RBC 4.92 Mil/uL (4.40-5.90); RED CELL DISTRIBUTION WIDTH 14.9 % (11.5-14.5); WHITE BLOOD COUNT 5.6 K/uL (4.8-10.8)
[2017-09-05 08:13] LABS: ALB/GLOB RATIO 1.2 (1.0-2.1); ALBUMIN 4.2 g/dL (3.5-5.0); ALT/SGPT 30 U/L (21-72); AST/SGOT 25 U/L (17-59); BLOOD UREA NITROGEN 4 mg/dL (9-20); CALCIUM 9.2 mg/dl (8.6-10.4); GFR AFRICAN-AMERICAN > 60; GFR NON-AFRICAN AMERICAN > 60
--- NOTE | 2017-09-05 08:40 | CP.PCM.PN ---
Subjective - Date & Time of Evaluation Date of Evaluation: 09/05/17 Time of Evaluation: 08:25 - Subjective Subjective: F/u pancreatitis. Pt reports feeling better since yest and much less abdom pain. Denies CP, SOB, RB, melena, fever, chills, YEN, cough Objective - Vital Signs/Intake and Output Vital Signs (last 24 hours): Temp Pulse Resp BP Pulse Ox 98.0 F 82 20 127/83 99 09/05/17 08:11 09/05/17 08:11 09/05/17 08:11 09/05/17 08:11 09/05/17 08:11 Intake and Output: 09/05/17 09/05/17 06:59 18:59 Intake Total 1200 Balance 1200 - Medications Medications: Current Medications Lactated Ringer's (Lactated Ringer's) 1,000 mls @ 150 mls/hr IV .Q6H40M [facility] Last Admin: 09/05/17 06:52 Dose: 150 mls/hr Ketorolac Tromethamine (Toradol) 15 mg IVP Q6 PRN PRN Reason: Pain, moderate (4-7) Last Admin: 09/03/17 18:47 Dose: 15 mg Ketorolac Tromethamine (Toradol) 30 mg IVP Q6 PRN PRN Reason: Pain, severe (8-10) Last Admin: 09/04/17 05:08 Dose: 30 mg Ondansetron HCl (Zofran Inj) 4 mg IVP Q6 PRN PRN Reason: Nausea/Vomiting Pantoprazole Sodium (Protonix Inj) 40 mg IVP DAILY [facility] Last Admin: 09/04/17 09:30 Dose: 40 mg Rosuvastatin Calcium (Crestor) 5 mg PO HS [facility] Last Admin: 09/04/17 21:37 Dose: 5 mg - Labs Labs: 09/05/17 07:42 09/05/17 07:42 PT 11.1 SECONDS (9.7-12.2) 09/03/17 03:05 INR 1.0 09/03/17 03:05 APTT 29 SECONDS (21-34) 09/03/17 03:05 - Constitutional Appears: Well - Respiratory Exam Respiratory Exam: Clear to Ausculation Bilateral - Cardiovascular Exam Cardiovascular Exam: RRR - GI/Abdominal Exam GI & Abdominal Exam: Soft, Normal Bowel Sounds. absent: Distended, Firm, Guarding, Tenderness, Mass, Rebound - Neurological Exam Neurological Exam: Alert, Oriented x3 Assessment and Plan (1) Hypokalemia Assessment & Plan: replace Status: Acute (2) Abdominal pain Assessment & Plan: pancreatitis Status: Acute (3) Acute pancreatitis Assessment & Plan: Last etoh 2 yrs ago. TG- 280. + FH pancreatitis. Check AI labs, CHELSEA, IgG4. On IV fluids. Tolerating liquids. Status: Acute
[2017-09-05 12:25] LABS: LIPASE 540 U/L (23-300)
[2017-09-06] MEDS: Lactated Ringer's 1,000 ML IV SCH ×4 (01:59→12:42)
[2017-09-06 07:57] LABS: BASO % 0.4 % (0.0-2.0); EOS # 0.2 K/uL (0.0-0.7); HEMOGLOBIN 14.6 g/dL (12.0-18.0); LYMPH # 1.8 K/uL (1.0-4.3); LYMPH % 37.8 % (20.0-40.0); MEAN CELL VOLUME 82.7 fL (80.0-94.0); MEAN CORPUSCULAR HEMOGLOBIN 28.7 pg (27.0-31.0); MEAN CORPUSCULAR HGB CONC 34.7 g/dL (33.0-37.0); MEAN PLATELET VOLUME 7.7 fL (7.2-11.7); MONO # 0.3 K/uL (0.0-0.8); MONO % 5.9 % (0.0-10.0); NEUT # 2.4 K/uL (1.8-7.0); NEUT % 50.9 % (50.0-75.0); NRBC % 0.1 % (0.0-2.0); RBC 5.07 Mil/uL (4.40-5.90); RED CELL DISTRIBUTION WIDTH 14.8 % (11.5-14.5); WHITE BLOOD COUNT 4.7 K/uL (4.8-10.8)
[2017-09-06 08:25] LABS: ALB/GLOB RATIO 1.2 (1.0-2.1); ALBUMIN 4.5 g/dL (3.5-5.0); ALT/SGPT 34 U/L (21-72); AST/SGOT 31 U/L (17-59); BLOOD UREA NITROGEN 3 mg/dL (9-20); CALCIUM 9.6 mg/dl (8.6-10.4); GFR AFRICAN-AMERICAN > 60; GFR NON-AFRICAN AMERICAN > 60; LIPASE 252 U/L (23-300)
[2017-09-06 08:44] VITALS: BP 126/82; PULSE 82; TEMP 97.3; O2SAT 97
--- NOTE | 2017-09-06 14:53 | CP.PCM.DIS ---
Provider - Provider Date of Admission: 09/03/17 05:58 Attending physician: Braden Mcghee MD Time Spent in preparation of Discharge (in minutes): 35 Diagnosis - Discharge Diagnosis (1) Acute pancreatitis Status: Acute (2) Hypokalemia Status: Acute (3) Leukocytosis Status: Acute (4) Prophylactic measure Status: Acute Hospital Course - Lab Results Lab Results: Most Recent Lab Values WBC 4.7 K/uL (4.8-10.8) L 09/06/17 07:46 RBC 5.07 Mil/uL (4.40-5.90) 09/06/17 07:46 Hgb 14.6 g/dL (12.0-18.0) 09/06/17 07:46 Hct 42.0 % (35.0-51.0) 09/06/17 07:46 MCV 82.7 fL (80.0-94.0) 09/06/17 07:46 MCH 28.7 pg (27.0-31.0) 09/06/17 07:46 MCHC 34.7 g/dL (33.0-37.0) 09/06/17 07:46 RDW 14.8 % (11.5-14.5) H 09/06/17 07:46 Plt Count 240 K/uL (130-400) 09/06/17 07:46 MPV 7.7 fL (7.2-11.7) 09/06/17 07:46 Neut % (Auto) 50.9 % (50.0-75.0) 09/06/17 07:46 Lymph % (Auto) 37.8 % (20.0-40.0) 09/06/17 07:46 [place] % (Auto) 5.9 % (0.0-10.0) 09/06/17 07:46 Eos % (Auto) 5.0 % (0.0-4.0) H 09/06/17 07:46 Baso % (Auto) 0.4 % (0.0-2.0) 09/06/17 07:46 Neut # (Auto) 2.4 K/uL (1.8-7.0) 09/06/17 07:46 Lymph # (Auto) 1.8 K/uL (1.0-4.3) 09/06/17 07:46 [place] # (Auto) 0.3 K/uL (0.0-0.8) 09/06/17 07:46 Eos # (Auto) 0.2 K/uL (0.0-0.7) 09/06/17 07:46 Baso # (Auto) 0.0 K/uL (0.0-0.2) 09/06/17 07:46 PT 11.1 SECONDS (9.7-12.2) 09/03/17 03:05 INR 1.0 09/03/17 03:05 APTT 29 SECONDS (21-34) 09/03/17 03:05 Sodium 143 mmol/L (132-148) 09/06/17 07:46 Potassium 3.7 mmol/L (3.6-5.2) 09/06/17 07:46 Chloride 101 mmol/L (98-107) 09/06/17 07:46 Carbon Dioxide 26 mmol/L (22-30) 09/06/17 07:46 Anion Gap 20 (10-20) 09/06/17 07:46 BUN 3 mg/dL (9-20) L 09/06/17 07:46 Creatinine 0.6 mg/dL (0.8-1.5) L 09/06/17 07:46 Est GFR ( Amer) > 60 09/06/17 07:46 Est GFR (Non-Af Amer) > 60 09/06/17 07:46 Random Glucose 83 mg/dL (75-110) 09/06/17 07:46 Hemoglobin A1c 5.4 % (4.2-6.5) 09/03/17 11:41 Calcium 9.6 mg/dl (8.6-10.4) 09/06/17 07:46 Phosphorus 4.2 mg/dL (2.5-4.5) 09/06/17 07:46 Magnesium 1.7 mg/dL (1.6-2.3) 09/06/17 07:46 Total Bilirubin 0.7 mg/dL (0.2-1.3) 09/06/17 07:46 AST 31 U/L (17-59) 09/06/17 07:46 ALT 34 U/L (21-72) 09/06/17 07:46 Alkaline Phosphatase 61 U/L (38-126) 09/06/17 07:46 Lactate Dehydrogenase 362 U/L (313-618) 09/03/17 11:41 Total Protein 8.2 g/dL (6.3-8.3) 09/06/17 07:46 Albumin 4.5 g/dL (3.5-5.0) 09/06/17 07:46 Globulin 3.7 gm/dL (2.2-3.9) 09/06/17 07:46 Albumin/Globulin Ratio 1.2 (1.0-2.1) 09/06/17 07:46 Triglycerides 263 mg/dL (0-149) H 09/03/17 11:41 Cholesterol 237 mg/dL (0-199) H 09/03/17 11:41 LDL Cholesterol Direct 179 mg/dL (0-129) H 09/03/17 11:41 HDL Cholesterol 31 mg/dL (30-70) 09/03/17 11:41 Lipase 252 U/L (23-300) 09/06/17 07:46 Urine Color Colorless (YELLOW) 09/03/17 04:22 Urine Clarity Clear (Clear) 09/03/17 04:22 Urine pH 7.0 (5.0-8.0) 09/03/17 04:22 Ur Specific [place] 1.005 (1.003-1.030) 09/03/17 04:22 Urine Protein Negative mg/dL (NEGATIVE) 09/03/17 04:22 Urine Glucose (UA) Normal mg/dL (Normal) 09/03/17 04:22 Urine Ketones Negative mg/dL (NEGATIVE) 09/03/17 04:22 Urine Blood Negative (NEGATIVE) 09/03/17 04:22 Urine Nitrate Negative (NEGATIVE) 09/03/17 04:22 Urine Bilirubin Negative (NEGATIVE) 09/03/17 04:22 Urine Urobilinogen Normal mg/dL (0.2-1.0) 09/03/17 04:22 Ur Leukocyte Esterase Neg [place]/uL (Negative) 09/03/17 04:22 Urine WBC (Auto) 1 /hpf (0-5) 09/03/17 04:22 Urine RBC (Auto) < 1 /hpf (0-3) 09/03/17 04:22 Alcohol, Quantitative < 10 mg/dl (0-10) 09/03/17 11:41 Anti-Mitochondrial Ab Negative (Negative) 09/03/17 14:11 - Hospital Course Hospital Course: HPI ( As per admission): Patient is a 32 year old male with past medical history of acute pancreatitis ( 2016), who presents with left-sided abdominal pain that started at 1:30am with associated symptom of one time episode of vomiting. Patient reports this has a heavy pain that is localized to the left side of his abdomen without any radiation. Patient denies any episode of fever, chills, chest pain, SOB, palpitations, hematochezia, hematuria, dysuria. Patient denies any acute alcohol binging. Hospital Course: Patient was admitted with the consideration of acute pancreatitis, subsequently , patient was made NPO, with continuos IV hydration and pain control. GI consultation was placed to Dr. Albright, who agreed with medical management as per medicine team. Over the course of admission, patient was auto-immune work- up labs for pancreatitis were collected and patient will be sent result in [place] via his [id number] once they are available. Patient was made aware the labs needed for auto-immune work-up so that he can complete them as well in [place], if he is unable to obtain the result. Patient remained clinically stable over the course of admission with no acute issues and was able to tolerate regular diet upon discharge. Patient was discharge with appropriate instructions. Pertinent imaging and labs * Lipase: 57,174----> 252, normalized upon discharge * WBC: 11.6, resolved upon discharge * Lipid panel: TGL: 263, Cholesterol: 237, LDL:171 and HDL:31 * [place] Criteria on admission: 1 * CT abdomen/Pelvis: Peripancreatic inflammatory change and fluid representing acute pancreatitis This is a summary of events. For a complete course, please refer to the medical records Discharge Exam - Head Exam Head Exam: ATRAUMATIC, NORMAL INSPECTION - Eye Exam Eye Exam: EOMI, Normal appearance - ENT Exam ENT Exam: Mucous Membranes Moist - Respiratory Exam Respiratory Exam: Clear to PA & Lateral, NORMAL BREATHING PATTERN. absent: Prolonged Expiratory Phase, Rales, Rhonchi, Wheezes, Respiratory Distress - Cardiovascular Exam Cardiovascular Exam: REGULAR RHYTHM, +S1, +S2. absent: Tachycardia, Systolic Murmur - GI/Abdominal Exam GI & Abdominal Exam: Normal Bowel Sounds, Soft. absent: Distended, Firm, Guarding, Tenderness, Unremarkable - Extremities Exam Extremities exam: normal inspection - Back Exam Back exam: NORMAL INSPECTION. absent: CVA tenderness (L), CVA tenderness (R) - Neurological Exam Neurological exam: Alert, Oriented x3 - Psychiatric Exam Psychiatric exam: Normal Affect, Normal Mood - Skin Skin Exam: Normal Color Discharge Plan - Follow Up Plan Condition: FAIR Disposition: HOME/ ROUTINE Instructions: Pancreatitis (DC) Additional Instructions: Please discharge home Please follow up with a Gastroenterology in [place] to monitor and conduct auto- immune work-up for recurrent acute pancreatitis : - Autoimmune work-up contains: 1. CHELSEA, P-ANCA, IgG4, Anti PBP peptide Ab, Lactoferrin, Anti-mitochondrial Ab, RF, Anti-Smooth Ab, and Anti-thyroglobulin Ab and Carbonic Anhydrase II 2. Please obtain a MRI of your pancreas in [place] 3. Most of the test were ordered at [facility] but not yet resulted. As per discussion, your [id number] (Kasandra Roldan) can obtain the records and results of the labs. Please all your PMD and Gastroenterology in [place] to view your most recent abdominal CT scan as I have given you the CD from our radiaology department Please abstain from fried or fatty foods or eat in moderation and completely from alcohol as your have been doing for the past two year Please exercise for at least 30 minutes per day Please continue to hydrate yourself Please take care yourself
== END 2017-09-06 15:50 | disposition home or self-care (01) | DRG 440 ==
LOC: C.ER 02:01 → C.3T 05:58 → MERGE 05:58
PROVIDERS: ADMIT Internal Medicine; ATTEND Internal Medicine
DX: K85.20 Alcohol induced acute pancreatitis without necrosis or infection (principal); E87.6 Hypokalemia; K86.0 Alcohol-induced chronic pancreatitis